=== PATIENT | male | born 1985 | race Caucasian/White ===

== ENCOUNTER 2016-07-10 22:05 | Emergency (ER) | payer MEDICAID ==
[~2016-07-10] VITALS: Ht 198.1 cm; Wt 127.0 kg
--- NOTE | 2016-07-10 22:05 | NUR ---
To bed 8 a 31 yo male bibra with c/o anxiety attack. Per patient he had some symptoms of schizophrenia that's why he was brought to ER. Patient is aaox3, ambulatory. No s/s of acute distress. Denies SI/HI. Initiated safety measures. Awaiting for er md thompson.
--- NOTE | 2016-07-10 22:10 | NUR ---
Dr Soto at bedside for eval.
[2016-07-10] MEDS ORDERED: LORAZEPAM 1 MG TABLET ONE (22:28)
--- NOTE | 2016-07-10 22:33 | NUR ---
labor custodian at bedside for eval.
[2016-07-10 22:43] LABS: BASOPHILS % (AUTO) 0.3 % (0.0-2.0); EOSINOPHILS % (AUTO) 0.2 % (0.0-6.0); HEMATOCRIT 46 % (39-51); HEMOGLOBIN 15.4 g/dL (13.5-17.5); LYMPHOCYTES # (AUTO) 0.7 /CMM (0.8-4.8); LYMPHOCYTES % (AUTO) 14.3 % (20.0-44.0); MEAN CORPUSCULAR HEMOGLOBIN 29 PG (26.0-33.0); MEAN CORPUSCULAR HGB CONC 34 g/dl (31.0-36.0); MEAN CORPUSCULAR VOLUME 86 fL (80-96); MONOCYTES # (AUTO) 0.5 /CMM (0.1-1.30); MONOCYTES % (AUTO) 9.7 % (2.0-12.0); NEUTROPHILS # (AUTO) 3.8 /CMM (1.8-8.9); NEUTROPHILS % (AUTO) 75.5 % (43.0-81.0); PLATELET COUNT (AUTO) 370 /CMM (150-450); RDW COEFFICIENT OF VARIATION 13.5 (11.5-15.0); RED BLOOD CELL COUNT(AUTO) 5.33 MIL/uL (4.5-6.0)
--- NOTE | 2016-07-10 22:50 | NUR ---
Urine collected via clean catch, sent to lab.
[2016-07-10 22:53] LABS: CALCIUM, SERUM 8.8 mg/dL (8.5-10.1); CARBON DIOXIDE 28 mmol/L (21-32); CHLORIDE 106 mmol/L (98-107); CREATININE 1.1 mg/dL (0.6-1.3); GFR 78 mL/min (>60); GLUCOSE 93 mg/dL (74-106); SODIUM SERUM 142 mmol/L (136-145); UREA NITROGEN, BLOOD 7 mg/dL (7-18)
--- NOTE | 2016-07-10 22:53 | NUR ---
Ativan 2mg po given per Dr Soto Verbal order.
[2016-07-10 22:59] LABS: ACETAMINOPHEN 0 ug/ml (10-30); ALANINE AMINOTRANSFERASE 51 U/L (12-78); ALCOHOL, BLOOD < 3 mg/dL (0-0); ALKALINE PHOSPHATASE 77 U/L (46-116); ASPARTATE AMINOTRANSFERASE 18 U/L (15-37); BILIRUBIN,DIRECT 0.1 mg/dL (0.0-0.2); BILIRUBIN,TOTAL 0.3 mg/dL (0.2-1.0); SALICYLATE 2.9 mg/dL (2.8-20.0); TOTAL PROTEIN, SERUM 7.6 g/dL (6.4-8.2)
[2016-07-10 23:07] LABS: THYROID STIMULATING HORMONE 0.645 uIU/mL (0.358-3.74)
--- NOTE | 2016-07-10 23:20 | NUR ---
CALLED [facility] NOTIFIED THEM THAT ER PHYSICIAN DR LOPEZ IS READY TO PRESENT CASE TO [facility].
[2016-07-10 23:27] LABS: CANNABINOID, URINE POSITIVE (NEGATIVE); PHENCYCLIDINE SCREEN,URINE NEGATIVE (NEGATIVE)
[2016-07-10] MEDS ORDERED: LORAZEPAM 1 MG TABLET PO ONE (23:30)
--- NOTE | 2016-07-11 02:15 | NUR ---
REPORT GIVEN TO MIKAYLA/RN AT [facility].
[2016-07-11 02:30] VITALS: BP 140/77
== END 2016-07-11 02:42 ==
LOC: ER 22:06
DX: F25.9 Schizoaffective disorder, unspecified (principal); R45.850 Homicidal ideations; R94.6 Abnormal results of thyroid function studies
CPT/HCPCS: 36415; 80048-TC; 80076-TC; 80305; 84443-TC; 85025-TC; A4606; G0480; G6039-TC; Z7610